=== PATIENT | female | born 1965 | race Caucasian/White ===

== ENCOUNTER 2018-04-21 10:39 | Outpatient (CLI) | payer BC | END 2018-04-21 10:40 | disposition home or self-care (01) | LOC: BICMAMMO 10:39 | PROVIDERS: ATTEND Obstetrics & Gynecology | DX: Z12.31 Encounter for screening mammogram for malignant neoplasm of breast (principal); Z80.3 Family history of malignant neoplasm of breast; Z98.82 Breast implant status | CPT/HCPCS: 77063; 77067 ==

== ENCOUNTER 2020-12-08 08:23 | Outpatient (CLI) | payer BC, OTHER | END 2020-12-08 08:24 | disposition home or self-care (01) | LOC: BICMAMMO 08:23 | PROVIDERS: ATTEND Physician Assistant | DX: Z12.31 Encounter for screening mammogram for malignant neoplasm of breast (principal); Z80.3 Family history of malignant neoplasm of breast; Z98.82 Breast implant status | CPT/HCPCS: 77063; 77067 ==

== ENCOUNTER 2024-08-17 08:36 | Outpatient (CLI) | payer BC | END 2024-08-17 08:37 | disposition home or self-care (01) | LOC: BICULT 08:36 | PROVIDERS: ATTEND Nurse Practitioner Family | DX: R74.8 Abnormal levels of other serum enzymes (principal); K82.8 Other specified diseases of gallbladder | CPT/HCPCS: 76705 ==

== ENCOUNTER 2024-09-28 09:31 | Outpatient (CLI) | payer BC | END 2024-09-28 09:32 | disposition home or self-care (01) | LOC: BICMAMMO 09:31 | PROVIDERS: ATTEND Nurse Practitioner Family | DX: Z12.31 Encounter for screening mammogram for malignant neoplasm of breast (principal); Z13.820 Encounter for screening for osteoporosis; M81.0 Age-related osteoporosis without current pathological fracture; M85.851 Other specified disorders of bone density and structure, right thigh; M85.852 Other specified disorders of bone density and structure, left thigh; Z98.82 Breast implant status; Z80.3 Family history of malignant neoplasm of breast | CPT/HCPCS: 77063; 77067; 77080 ==